=== PATIENT | male | born 1985 | race Caucasian/White ===

== ENCOUNTER 2019-08-01 16:11 | Outpatient (CLI) | payer BC ==
[2019-08-01 17:03] LABS: #Basophils 0.1 thou/uL (0.0-0.2); #Eosinphils 0.1 thou/uL (0.0-0.7); #Monocytes 0.6 thou/uL (0.11-0.59); %Basophils 1.2 % (0.0-1.0); %Eosinophils 1.1 % (0.0-10.0); %Lymphocytes 25.6 % (21.0-51.0); %Monocytes 7.8 % (0.0-10.0); %Neutrophils 64.3 % (42.0-75.0); Mean Corpuscular Hemoglobin 31.8 pg (27.0-31.0); Mean Corpuscular Volume 90.9 fL (78.0-98.0); Mean Platelet Volume 8.4 fL (7.4-10.4); Platelet Count 208 thou/uL (130-400); RBC Distribution Width 11.5 % (11.5-14.5); Red Blood Cell (RBC) Count 5.33 mill/uL (4.70-6.10); White Blood Cell (WBC) Count 7.8 thou/uL (4.8-10.8)
[2019-08-01 17:28] LABS: Anion Gap 10 mmol/L (10-20); BUN (Urea Nitrogen) 11 mg/dL (8.9-20.6); Calc. Creatinine Clearance 0 mL/min (70-130); Carbon Dioxide 30 mmol/L (22-29); Chloride 103 mmol/L (98-107); Estimated GFR-MDRD 90; Glucose 73 mg/dL (70-105); Potassium 3.8 mmol/L (3.5-5.1); Sodium 139 mmol/L (136-145)
== END 2019-08-01 16:12 | disposition home or self-care (01) ==
LOC: LABBT 16:11
PROVIDERS: ATTEND Surgery
DX: Z01.812 Encounter for preprocedural laboratory examination (principal); K40.90 Unilateral inguinal hernia, without obstruction or gangrene, not specified as recurrent
CPT/HCPCS: 80048; 85025

== ENCOUNTER 2019-08-08 10:36 | Day surgery (SDC) | payer BC ==
[2019-08-01 16:20] VITALS: BMI 26.1
[2019-08-08] MEDS ORDERED: Bupivacaine/Epinephrine 0.25% 30 ML VIAL ONE (11:00)
[2019-08-08] MEDS ORDERED: Midazolam HCl 2 mg/2 ml Vial ONE (11:45)
[2019-08-08] MEDS ORDERED: Fentanyl 100 MCG/2 ML VIAL ONE ×3 (11:51→13:40)
[2019-08-08] MEDS ORDERED: Dexamethasone 20 MG/5 ML VIAL ONE (12:28)
[2019-08-08] MEDS ORDERED: PROPOFOL 200 MG/20 ML VIAL ONE (12:28)
[2019-08-08] MEDS ORDERED: Ketorolac Tromethamine 30 MG/ML VIAL ONE (12:28)
[2019-08-08] MEDS ORDERED: Glycopyrrolate 0.2 MG/ML 5 ML SYRINGE ONE (12:28)
[2019-08-08] MEDS ORDERED: Rocuronium Bromide 10 MG/ML (10ML VIAL) ONE (12:28)
[2019-08-08] MEDS ORDERED: Lidocaine 1% PF 5 ML VIAL ONE (12:28)
[2019-08-08] MEDS ORDERED: Ondansetron PF 4 MG/2 ML Vial ONE (12:28)
[2019-08-08] MEDS ORDERED: HYDROcodone/Acetaminophen 5/325 mg Tablet ONE (14:38)
--- NOTE | 2019-08-09 11:21 | OP ---
DATE OF PROCEDURE: 08/08/2019 PREOPERATIVE DIAGNOSIS: Left inguinal hernia. POSTOPERATIVE DIAGNOSIS: Left inguinal hernia. PROCEDURE PERFORMED: Left inguinal hernia repair with mesh, laparoscopic Da Chuck robot. ANESTHESIA: General. ESTIMATED BLOOD LOSS: Minimal. COMPLICATIONS: None. SPECIMEN: None. DESCRIPTION OF PROCEDURE: The patient was taken to the operating room and laid supine on the operating room table. After general anesthetic was obtained, a Roy was placed. The abdomen was shaved, prepped, and draped in a sterile fashion. A curved incision was made above the umbilicus. Cautery dissected down to and scored the fascia. Abdominal cavity was entered bluntly using a Kimbrely clamp. The 11 mm balloon trocar was placed. High-flow pneumoperitoneum was obtained. Right and left abdominal 8 mm robot trocars were placed. All ports were docked to the robot. The peritoneum was opened in the left lower quadrant. Dissection was performed down to the pubic tubercle medially, anterior superior iliac crest laterally. The shelving edge of inguinal ligament was fully exposed. The indirect hernia was dissected back from the cord structures high up on to the peritoneum. The 3DMax large mesh was brought into the sterile field. The M-labeled medial aspect was placed over pubic tubercle medially. The mesh was laid out lateral to cover the direct, indirect, and femoral areas. The mesh was sewn via Vicryl to pubic tubercle medially and to the posterior fascia laterally. The peritoneum was reapproximated using 3-0 Stratafix. All port sites were infiltrated using local anesthetic. All ports were removed under camera visualization. Pneumoperitoneum was let down. PDS used to close the fascial defect above the umbilicus. All incisions were irrigated and closed using 4-0 Monocryl. The patient sent to Recovery in stable condition. All instrument counts, needle counts, and lap counts were correct. Job ID: [id number]
== END 2019-08-08 16:05 | disposition home or self-care (01) ==
LOC: SDC 10:36
PROVIDERS: ATTEND Surgery
PROC: 0YU64JZ Supplement Left Inguinal Region with Synthetic Substitute, Percutaneous Endoscopic Approach (ICD-10-PCS; principal; 2019-08-08)
DX: K40.90 Unilateral inguinal hernia, without obstruction or gangrene, not specified as recurrent (principal); Z79.899 Other long term (current) drug therapy
CPT/HCPCS: C1781; J0690; J1100; J1885; J2001; J2250; J2405; J2704; J3010